=== PATIENT | male | born 1980 | race Caucasian/White ===

== ENCOUNTER 2017-11-17 22:13 | Inpatient (IN) | payer BC ==
[~2017-11-17] VITALS: Ht 175.3 cm; Wt 144.3 kg
[~2017-11-17 22:13] MED LIST: ASPIR 8181 M1 PO; CYMBALTA60 MG PO; FLEXERIL10 MG PO; MELOXICAM15 MG PO; MEN'S ONE DAIL1 EACH PO; MOTRIN800 MG PO; OXYCONTIN30 MG PO; ROXICODONE15 MG PO; STOOL SOFTENER100 M1 PO; VALIUM5 MG PO
[2017-11-18 08:11] VITALS: BP 137/87
[2017-11-18] MEDS ORDERED: OXYMORPHONE HCL5 M1 PO (08:31)
[2017-11-18 17:19] VITALS: BP 139/77
[2017-11-18 21:12] VITALS: BP 127/88
[2017-11-19 00:38] VITALS: BP 133/60
[2017-11-19 01:40] VITALS: BP 156/60
[2017-11-19 04:42] VITALS: BP 151/66
[2017-11-19 08:10] VITALS: BP 145/78
[2017-11-19 12:00] VITALS: BP 132/70
[2017-11-19 15:54] VITALS: BP 137/83
[2017-11-19] MEDS ORDERED: ROXICODONE15 MG PO (17:34)
[2017-11-19] MEDS ORDERED: VALIUM5 MG PO (17:34)
== END 2017-11-19 18:39 | disposition home or self-care (01) | DRG 28 ==
LOC: ENRESERV 22:13 → 3WEST 11-18 07:45 → 2SOUTH 11-18 07:45 → 3WEST 11-18 07:45 → ENRESERV 11-18 13:54 → CANRESERV 11-18 13:54 → ENRESERV 11-18 14:41 → 2SOUTH 11-18 14:43 → SDC 11-18 15:06 → EDSTATUS 11-18 15:13 → 2SOUTH 11-18 15:15 → ENRESERV 11-18 15:56 → 3EAST 11-18 16:57
PROC: 00QT0ZZ Repair Spinal Meninges, Open Approach (ICD-10-PCS; principal; 2017-11-18)
PROC: 00JU0ZZ Inspection of Spinal Canal, Open Approach (ICD-10-PCS; principal; 2017-11-18)
PROC: 00W Central Nervous System and Cranial Nerves, Revision (ICD-10-PCS; principal; 2017-11-18)
DX: G97.82 Other postprocedural complications and disorders of nervous system (principal); G93.5 Compression of brain; G96.0 Cerebrospinal fluid leak; Z68.42 Body mass index [BMI] 45.0-49.9, adult; E66.01 Morbid (severe) obesity due to excess calories; G89.4 Chronic pain syndrome; F17.210 Nicotine dependence, cigarettes, uncomplicated; M48.061 Spinal stenosis, lumbar region without neurogenic claudication; M54.16 Radiculopathy, lumbar region; Z88.5 Allergy status to narcotic agent; Z88.6 Allergy status to analgesic agent
CPT/HCPCS: 71046; 72020; 76000; 86850; 86900; 86901; 87070; 87075; 87205; 94799; J0690; J1030; J1170; J2930; J3010; J3370; J3480; S0020